=== PATIENT | female | born 1965 | race Caucasian/White ===

== ENCOUNTER → 2018-09-24 | Outpatient (CLI) | payer OTHER ==
--- NOTE | 2018-09-24 12:24 | CT ---
EXAM DESCRIPTION: Sinuses. CT sinuses without contrast. CLINICAL HISTORY: HEADACHE COMPARISON: None Available. TECHNIQUE: Multiple axial images of the maxillofacial sinuses following intravenous contrast. Multiplanar reformatted images. This exam was performed according to our departmental dose-optimization program, which includes automated exposure control, adjustment of the mA and/or kV according to patient size and/or use of iterative reconstruction technique. FINDINGS: Numerous metallic dental fillings which result in beam hardening artifact. There are no air-fluid levels in the visualized paranasal sinuses. Mild mucosal thickening in the ethmoid air cells bilaterally. Small king bullosae in both middle turbinates. Mild leftward deviation of the nasal septum. Both ostiomeatal complexes are patent. The orbital globes are symmetric. Visualized portions of the intracranial structures are unremarkable. IMPRESSION: 1. Mild chronic inflammatory changes in the paranasal sinuses, with no CT evidence of acute sinusitis. 2. Mild leftward deviation of the nasal septum. 3. King bullosae in both middle turbinates. 4. Other findings as above. Electronically signed by: Avni Damian MD 09/24/2018 12:22 PM CDT
== END ==
LOC: LAB.O 11:03
PROVIDERS: ATTEND Nurse Practitioner Family
DX: J34.89 Other specified disorders of nose and nasal sinuses (principal); J34.2 Deviated nasal septum